=== PATIENT | male | born 1945 | race Hispanic/Latino ===

== ENCOUNTER 2018-09-11 05:14 | Day surgery (SDC) | payer MEDICARE, OTHER ==
[~2018-09-11] VITALS: Ht 175.3 cm; Wt 83.9 kg
--- NOTE | 2018-09-11 09:52 | NUR ---
09/11/18 0952 Rosangela Diggs 0937- PT ARRIVES TO PACU WITH EYES CLOSED AND ON 10 L O2 VIA MASK. MELANIE HENSLEY SUPPORTING JAW WITH CHIN LIFT. PT NON AROUSAL TO VERBAL OR PHYSICAL STIMULI. 0944- PT AROUSES TO VERBAL STIMULI AND GRABS AT MASK. ORAL AIRWAY REMOVED. PT ABLE TO MAINTAIN SATS 100% ON 6L 02 VIA MASK. RESP EVEN AND UNLABORED. PT QUICKLY FALLS BACK ASLEEP. 0949- PT DAUGHTERNEAL AT BEDSIDE CONVERSING WITH DR. ECKERT. PT REMOVES MASK, ABLE TO MAINTAIN SATS 97% ON RA. PT OCCAS SNORES WITH EVEN AND UNLABORED RESP. PT DOES NOT RESPOND TO PAIN QUESTIONS, CONT SLEEPING.
--- NOTE | 2018-09-11 10:39 | NUR ---
PT ARRIVES TO DS FROM PACU VIA STRETCHER, CARE CONT BY THIS RN. PT PROVIDED ICED WATER, JELLO AND CRACKERS. PT DAUGHTER AT BEDSIDE. CALL LIGHT WITHIN REACH.
[2018-09-11] MEDS ORDERED: NORCO 5-325 TA1 EACH PO (11:25)
--- NOTE | 2018-09-11 12:01 | NUR ---
1055: PT TOLERATES PO WELL, NO C/O NAUSEA. PT HAS URGE TO VOID. PT SITS AT SIDE OF BED, DENIES ANY DIZZINESS THEN STANDS. PT AMBULATES TO BATHROOM WITH RN ASSIST, PT STATES, "UN POQUITO" WHEN ASKED ABOUT DIZZINESS. PT ABLE TO VOID QS WITH NO PROBLEMS. PT BACK TO BED WITH CALL LIGHT IN REACH. DAUGHTER AT BEDSIDE. 1145: DC CRITERIA MET. DC INSTRUCTIONS PRESENTED TO PT AND DAUGHTER. PAIN PRESCRIPTION GIVEN TO DAUGHTER. PT DC'S FROM DS RM 5 VIA WC TO HOME WITH DAUGHTER.
--- NOTE | 2018-09-14 13:58 | OR ---
[facility] [address], [place] [address] Signed DATE OF OPERATION: 09/11/2018 SURGEON: David Eckert MD PREOPERATIVE DIAGNOSIS: Reducible right inguinal hernia. POSTOPERATIVE DIAGNOSIS: Reducible right indirect inguinal hernia. PROCEDURE PERFORMED: Right Jason onlay mesh inguinal herniorrhaphy. ESTIMATED BLOOD LOSS: None. 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 He told me he had a right inguinal hernia probably since age 20. He said it has been getting progressively larger and more symptomatic. He said just bending over to tie his shoes, it is bothering him. He came to my office with the help of his son-in-law interpreting. Apparently, his daughter knows me and had made the appointment. I had given David and his son-in-law booklets written in [place] and one written in [place] on hernias. We looked at those carefully together. He understands the nature of his right inguinal hernia. We discussed the difference between a primary suture repair and a mesh repair. He understands expected intraop and postop course. We did review the risks including, but not limited to bleeding, infection, scarring, change in contour of the skin, damage to the nerves, ischemic orchitis, recurrent hernias, and chronic pain. He had expressed understanding and wished to proceed. PROCEDURE NOTE: I have met with David in our preop area. Unfortunately, his daughter had already gone. However, it is very clear to David and myself that we were repairing his right inguinal hernia. We agreed on that and marked his right groin appropriately. After this, David was taken into the operating room and placed in the supine position under general anesthesia. He was given preoperative antibiotics along with subcutaneous heparin. SCDs were utilized. He was then prepped and draped in the usual sterile fashion. After this, a standard oblique incision was made in the right groin and carried down through the tissue bluntly and with the cautery. The external oblique Electronically Signed By: DAVID ECKERT MD 09/12/18 1105 PATIENT NAME: DAVID READ OPERATIVE REPORT DATE OF : 49 REPORT #: [id number] PHYSICIAN: DAVID ECKERT MD PCP: NO PRIMARY CARE PHYSICIAN REPORT IS CONFIDENTIAL AND NOT TO BE RELEASED WITHOUT AUTHORIZATION [facility] [address], [place] [address] Signed fascia was opened along its length and developed medially and laterally. The iliohypogastric and ilioinguinal nerves were visualized and protected throughout the case. The cord structures were elevated at the level of pubic tubercle with a [place] drain. The direct space was intact. We dissected out the anteromedial side of the cord structures at the level of deep ring. He had a large hernia sac that had extended down past the pubic tubercle. It took a few minutes to separate it from his cord structures. The hernia sac was opened and we purse-stringed the neck of the hernia sac with a 2-0 PDS suture x2. The hernia sac was then amputated and passed off the field. 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 We carefully the vas deferens and appended-formed plexus from his rather large cord lipoma. We suture ligated that at the apex, amputated the lipoma, and passed it off the field. After this, we found that his deep ring was quite patulous. Consequently, we took a 2-0 PDS suture. We started next to the pubic tubercle. We imbricated the direct space as we approached the deep ring. We brought the deep ring back together, so it was slightly smaller than the tip of my index finger. There was no undue tension of the tissues around the cord structures. After this, a flat piece of Prolene mesh was cut to fit his groin and a slit was made in the mesh to accommodate the cord structures at the level of deep ring. The mesh was held in place medially and laterally with the help of running #1 Prolene suture. Again, no undue tension of the mesh at the level of deep ring. Local anesthetic was then copiously injected in the wound. The wound was irrigated and suctioned out until clear. We closed the external oblique fascia over the repair with the help of a running 2-0 PDS suture. Sonya's fascia was reapproximated with a running 3-0 Monocryl suture. The dermis was reapproximated with interrupted 3-0 subcuticular Monocryl sutures. The skin edges were reapproximated with a running 6-0 fast absorbing plain gut suture. Dry gauze and tape were then applied. David was awakened from his anesthesia, extubated in the OR, and taken to recovery room in stable condition. David Eckert MD ALB/MODL /[id number] cc: MD David Delarosa MD Electronically Signed By: DAVID ECKERT MD 09/12/18 1105 PATIENT NAME: DAVID READ OPERATIVE REPORT DATE OF : 49 REPORT #: [id number] PHYSICIAN: DAVID ECKERT MD PCP: NO PRIMARY CARE PHYSICIAN REPORT IS CONFIDENTIAL AND NOT TO BE RELEASED WITHOUT AUTHORIZATION [address] [address] Signed Copies: URIEL CALIX MD, ANDREW L MD ~ Electronically Signed By: DAVID ECKERT MD 09/12/18 1105 PATIENT NAME: DAVID READ OPERATIVE REPORT DATE OF : 49 REPORT #: [id number] PHYSICIAN: DAVID ECKERT MD PCP: NO PRIMARY CARE PHYSICIAN REPORT IS CONFIDENTIAL AND NOT TO BE RELEASED WITHOUT AUTHORIZATION
== END 2018-09-11 11:45 | disposition home or self-care (01) ==
LOC: DS 05:14
PROVIDERS: Colon & Rectal Surgery
PROC: 0YU50JZ Supplement Right Inguinal Region with Synthetic Substitute, Open Approach (ICD-10-PCS; principal; 2018-09-11 06:45)
DX: K40.90 Unilateral inguinal hernia, without obstruction or gangrene, not specified as recurrent (principal); D17.6 Benign lipomatous neoplasm of spermatic cord; Z87.891 Personal history of nicotine dependence; Z88.0 Allergy status to penicillin
CPT/HCPCS: 00830; C1781; J0131; J0690; J1100; J1644; J1885; J2250; J2405; J2704; J2765; J3010; J7120